=== PATIENT | female | born 1980 | race Caucasian/White ===

== ENCOUNTER 2016-11-29 00:33 | Observation (INO) | payer BC ==
[2016-11-29] MEDS ORDERED: Morphine INJ* 4 MG/ML 1 ML SYRINGE IV ONE ×2 (00:56→04:35)
[2016-11-29] MEDS ORDERED: NS 0.9% 1000 ML* 1,000 ML IV ONE (00:56)
[2016-11-29] MEDS ORDERED: Ondansetron INJ* 2 MG/ML VIAL IV ONE ×2 (00:56→04:35)
[2016-11-29 01:04] LABS: Hematocrit 47 % (35-47); Hemoglobin 15.7 g/dl (12.0-16.0); Mean Corpuscular HGB Conc 33 g/dl (31-36); Mean Corpuscular Hemoglobin 28 pg (27-31); Mean Corpuscular Volume 85 fL (80-97); Mean Platelet Volume 9 um3 (7.4-10.4); Red Blood Count 5.52 10^6/ul (4.0-5.4); Red Cell Distribution Width 13 % (10.5-15); White Blood Count 20.3 10^3/ul (3.5-10.8)
[2016-11-29 01:05] LABS: Add Diff/Slide Review? Slide Review Added; Comments Flag Yes
--- NOTE | 2016-11-29 01:09 | ED ---
I, Yony,Tina, scribed for Alex Mesa MD on 11/29/16 at 0056 . Abdominal Pain/Female - HPI Summary HPI Summary: This 36 y/o female presents to ED for acute abd pain since 1900 PM. Pain is diffuse and has been progressive worsening since the onset. Positive n/v x1 INDUSTRIAL RELATIONS REPRESENTATIVE. Pt states that she has been having n/v/d since a month ago, which is currently being f/u with EGD and colonoscopy without definite dx. PMHx includes CAD and IA s/p stent placement at age 34, and cholecystectomy. Pt is visiting [place] from out of town. - History of Current Complaint Chief Complaint: EDAbdPain Stated Complaint: ABD PAIN Time Seen by Provider: 11/29/16 00:34 Hx Obtained From: Patient, Medical Records Onset/Duration: Still Present Timing: Constant Pain Intensity: 10 Pain Scale Used: 0-10 Numeric Location: Diffuse Radiates: No Aggravating Factor(s): Nothing Alleviating Factor(s): Nothing Associated Signs and Symptoms: Positive: Nausea, Vomiting Allergies/Adverse Reactions: Allergies Allergy/AdvReac Type Severity Reaction Status Date / Time No Known Allergies Allergy Verified 11/29/16 00:37 Home Medications: Home Medications Aspirin [Aspirin 81 MG TAB] 81 mg PO DAILY 11/29/16 [History Confirmed 11/29/16] Atorvastatin* [Lipitor*] 10 mg PO DAILY 11/29/16 [History Confirmed 11/29/16] Levothyroxine TAB* [Synthroid TAB*] 50 mcg PO DAILY 11/29/16 [History Confirmed 11/29/16] Liraglutide [Victoza] 1.2 mg SC DAILY 11/29/16 [History Confirmed 11/29/16] Lisinopril [Prinivil TAB 20 mg] 20 mg PO DAILY 11/29/16 [History Confirmed 11/29] Metoprolol Succinate [Toprol Xl] 25 mg PO DAILY 11/29/16 [History Confirmed ] metFORMIN* [Glucophage 500 MG TAB *] 500 mg PO DAILY 11/29/16 [History Confirmed 11/29/16] PMH/Surg Hx/FS Hx/Imm Hx Cardiovascular History: Reports: Hx Coronary Artery Disease, Hx Myocardial Infarction - Surgical History Surgery Procedure, Year, and Place: cholecystectomy Infectious Disease History: No Infectious Disease History: Denies: Traveled Outside the [place] in Last 30 Days - Family History Known Family History: Positive: Cardiac Disease - Positive to father, Hypertension - Positive to father, Diabetes - Positive to mother - Social History Alcohol Use: None Hx Substance Use: No Substance Use Type: Reports: None Hx Tobacco Use: No Smoking Status (MU): Never Smoked Tobacco Review of Systems Negative: Fever Positive: Abdominal Pain, Vomiting, Nausea Negative: dysuria All Other Systems Reviewed And Are Negative: Yes Physical Exam Triage Information Reviewed: Yes Vital Signs On Initial Exam: Initial Vitals Temp Pulse Resp BP Pulse Ox 99.2 F 137 28 131/103 100 11/29/16 00:36 11/29/16 00:36 11/29/16 00:36 11/29/16 00:36 11/29/16 00:36 Vital Signs Reviewed: Yes Appearance: Positive: Pain Distress - mild discvomfort, Obese Skin: Positive: Warm Head/Face: Positive: Normal Head/Face Inspection Eyes: Positive: AALIYAH ENT: Positive: Hearing grossly normal Neck: Positive: Supple Respiratory/Lung Sounds: Positive: Clear to Auscultation, Breath Sounds Present Cardiovascular: Positive: RRR Abdomen Description: Positive: No Organomegaly, Soft, Guarding, Other: - mild diffuse abd tenderness. Negative: Distended Bowel Sounds: Positive: Present Musculoskeletal: Positive: Strength/ROM Intact Neurological: Positive: Alert, Oriented to Person Place, Time Psychiatric: Positive: Affect/Mood Appropriate Diagnostics - Vital Signs Vital Signs Temp Pulse Resp BP Pulse Ox 11/29/16 00:36 99.2 F 137 28 131/103 100 - Laboratory Lab Results: Lab Results 11/29/16 Range/Units 00:55 WBC 20.3 H (3.5-10.8) 10^3/ul RBC 5.52 H (4.0-5.4) 10^6/ul Hgb 15.7 (12.0-16.0) g/dl Hct 47 (35-47) % MCV 85 (80-97) fL MCH 28 (27-31) pg MCHC 33 (31-36) g/dl RDW 13 (10.5-15) % Plt Count 464 H (150-450) 10^3/ul MPV 9 (7.4-10.4) um3 Neut % (Auto) 76.4 (38-83) % Lymph % (Auto) 12.9 L (25-47) % Hopkins % (Auto) 8.4 (1-9) % Eos % (Auto) 1.8 (0-6) % Baso % (Auto) 0.5 (0-2) % Absolute Neuts (auto) 15.5 H (1.5-7.7) 10^3/ul Absolute Lymphs (auto) 2.6 (1.0-4.8) 10^3/ul Absolute Monos (auto) 1.7 H (0-0.8) 10^3/ul Absolute Eos (auto) 0.4 (0-0.6) 10^3/ul Absolute Basos (auto) 0.1 (0-0.2) 10^3/ul Absolute Nucleated RBC 0 10^3/ul Nucleated RBC % 0 Result Diagrams: 11/29/16 00:55 11/29/16 00:55 Lab Statement: Any lab studies that have been ordered have been reviewed, and results considered in the medical decision making process. - CT Ab/P CT Interpretation: Positive (See Comments) - Moderately to severely inflameed left abd small bowel loops with small amount of ascites but no abscess or freea air, could be secondary to infection or Crohn's dz. Fatty Liver. CT Interpretation Completed By: Radiologist - EKG 0053 Cardiac Rate: Tachycardia - 131 bpm EKG Rhythm: Sinus Tachycardia EKG Interpretation: RBBB Abdominal Pain Fem Course/Dx - Diagnoses Provider Diagnoses: Abdominal pain - Provider Notifications Discussed Care Of Patient With: Dr. Kovacs (Hospitalist) paged at 0438 AM. Call returned at 0451 AM Instructed by Provider To: Admit As Inpatient Discharge - Discharge Plan Condition: Fair Disposition: ADMITTED TO [facility] The documentation as recorded by the Yony novak Soohyun accurately reflects the service I personally performed and the decisions made by me, Alex Mesa MD.
[2016-11-29 01:17] LABS: ALT 9 U/L (7-52); AST 9 U/L (13-39); Albumin 3.5 g/dL (3.2-5.2); Alkaline Phosphatase 72 U/L (34-104); Anion Gap 13 mmol/L (2-11); BUN/Creatinine Ratio 10.5 (8-20); Blood Urea Nitrogen 9 mg/dL (6-24); CO2 Carbon Dioxide 18 mmol/L (22-32); Calcium 8.5 mg/dL (8.6-10.3); Chloride 100 mmol/L (101-111); EGFR Non-African American 74.7 (>60); Globulin 3.3 g/dL (2-4); Glucose 209 mg/dL (70-100); Lipase 26 U/L (11.0-82.0); Magnesium 1.7 mg/dL (1.9-2.7); Potassium 3.9 mmol/L (3.5-5.0); Sodium 131 mmol/L (133-145); Total Protein 6.8 g/dL (6.4-8.9)
[2016-11-29] MEDS ORDERED: Iodixanol* (CONTRAST) 320 MG/ML 100 ML SDV IV ONE (04:13)
[2016-11-29] MEDS ORDERED: Ondansetron INJ* 2 MG/ML VIAL ONE (04:33)
[2016-11-29] MEDS ORDERED: Morphine INJ* 4 MG/ML 1 ML SYRINGE ONE (04:33)
[2016-11-29 04:58] LABS: Urine Bacteria Absent (Absent); Urine Bilirubin Negative (Negative); Urine Glucose Negative (Negative); Urine Nitrite Negative (Negative)
[2016-11-29] MEDS ORDERED: Magnesium Sulfate 2 GM IV* 2 GM/50 ML BAG IVPB ONE (05:05)
[2016-11-29] MEDS ORDERED: Morphine INJ* 2 MG/ML 1 ML SYRINGE IV PRN (05:05)
[2016-11-29] MEDS ORDERED: Acetaminophen TAB* 325 MG PO PRN (05:05)
[2016-11-29] MEDS ORDERED: NS 0.9% 1000 ML* 1,000 ML IV SCH (05:15)
[2016-11-29] MEDS ORDERED: Dextrose 50% Syringe 50 ML* 25 GM/50 ML SYRINGE IV PUSH PRN (05:52)
[2016-11-29] MEDS: Levothyroxine TAB* 50 MCG TAB PO SCH (06:22)
[2016-11-29] MEDS ORDERED: metroNIDAZOLE IV 500 MG/100ML* 500 MG/100 ML BAG IVPB SCH (06:30)
--- NOTE | 2016-11-29 07:39 | RAD ---
CLINICAL HISTORY: Diffuse abdominal pain COMPARISON: None TECHNIQUE: Multiple contiguous axial CT scans were obtained of the abdomen and pelvis after the administration of intravenous contrast. Coronal and sagittal multiplanar reformations are submitted for review. Oral contrast was administered. Delayed images were obtained through the abdomen and pelvis. FINDINGS: LUNG BASES: The lung bases are clear. LIVER: The liver is diffusely low in attenuation compared to the spleen. There are no focal hepatic parenchymal masses. The liver is enlarged measuring 21 cm in long axis. There is trace perihepatic ascites. BILE DUCTS: There is no intrahepatic or extrahepatic biliary dilatation. GALLBLADDER: The gallbladder is not visualized. Surgical clips are noted in the gallbladder fossa. PANCREAS: The pancreas is normal, without mass or ductal dilatation. SPLEEN: Normal in size and appearance. UPPER GI TRACT: Evaluation of the gastrointestinal tract is limited by incomplete gastric distention. The upper GI tract is unremarkable. SMALL BOWEL AND MESENTERY: There is mucosal thickening of the proximal jejunum with associated stranding of the mesenteric fat. There is no obstruction. COLON: There are multiple diverticula of the sigmoid colon. There is no pericolonic inflammatory change. ADRENALS: Normal bilaterally. KIDNEYS: The kidneys are normal in shape, size, contour, and axis. There is no hydronephrosis or nephrolithiasis. BLADDER: The bladder is smooth in contour. PELVIC ORGANS: The uterus and adnexa are grossly normal for technique. AORTA: The aorta is normal. The splanchnic vessels are patent. IVC: Unremarkable LYMPH NODES: There is no lymphadenopathy by size criteria. ABDOMINAL WALL: There is a small fat-containing umbilical hernia BONES AND SOFT TISSUES: There are mild diffuse degenerative changes. OTHER: There is a small amount of ascites IMPRESSION: 1. HEPATOMEGALY WITH FATTY INFILTRATION OF THE LIVER. 2. THERE IS SEGMENTAL MUCOSAL THICKENING OF THE PROXIMAL JEJUNUM CONSISTENT WITH ENTERITIS, INCLUDING INFLAMMATORY OR INFECTIOUS ENTERITIS. 3. SMALL AMOUNT OF ASCITES. 4. DIVERTICULOSIS
[2016-11-29] MEDS: Aspirin EC Low Dose* 81 MG TAB.EC PO SCH (07:50)
[2016-11-29] MEDS: Metoprolol Succinate XL TAB* 25 MG PO SCH (07:50)
[2016-11-29] MEDS: Atorvastatin* 10 MG TAB PO SCH (07:50)
[2016-11-29] MEDS: Levofloxacin 500 MG IVPREMIX(* 500 MG/100 ML BAG IVPB ONE (07:50)
--- NOTE | 2016-11-29 08:28 | HP ---
HISTORY AND PHYSICAL: DATE OF ADMISSION: 11/29/16 PRIMARY CARE PROVIDER: Jeana Noguera MD, [place], [place] CHIEF COMPLAINT: Abdominal pain. HISTORY OF PRESENT ILLNESS: Ms. West is a 36-year-old female who states that, for the last one year, she has had issues were suddenly she will begin to vomit out of the blue. This will not be preceded by anything other than perhaps lying on her left side. The patient states that this has been an on-going issue and not at play today; however, she did have vomiting on the evening prior to admission. The patient states that she had been worked up for this intermittent vomiting with EGD and colonoscopy. She states that these were done approximately one month ago. The EGD showed perhaps some gastritis, and the colonoscopy with one polyp was found and removed. The patient states that she traveled to the [facility] to be in town for a on this coming . The patient states that at approximately 7 p.m. 11/28/16 she had the sudden onset of diffuse abdominal pain. At approximately 10:30 p.m., she had nausea, vomiting, or worsened pain. She notes that the pain is much worse with any movement; if she lays completely still, then the pain is better. The patient described the pain as being diffuse; nothing really seemed to make it better other than lying still. She states that when she got up to go to the bathroom to urinate she noticed while sitting on the toilet she had significant rectal pressure though did not have an urge to have a bowel movement. The patient states that her last bowel movement was the morning of 11/28/16. She states that she, in fact, had two bowel movements that morning - one at approximately 8 a.m., one at approximately 10 p.m. She denies any blood in these. She states that the bowel movements were slightly loose, but she states that's not abnormal for her since she had a colonoscopy. She states that she has not had any fevers, though this past evening she did feel chilled. She does feel thirsty. PAST MEDICAL HISTORY: 1. Type 2 diabetes. 2. Coronary artery disease, status post NM in 2013, status post stenting to the LAD. PAST SURGICAL HISTORY: 1. Cholecystectomy. 2. Tonsillectomy. MEDICATIONS: 1. Metformin 500 mg p.o. daily. 2. Victoza 1.2 mg subcutaneous daily. 3. Metoprolol XL 25 mg p.o. daily. 4. Lisinopril 20 mg p.o. daily. 5. Lipitor 10 mg p.o. q.h.s. 6. control one tab p.o. daily. 7. Aspirin 81 mg p.o. daily. 8. Levothyroxine 50 mcg p.o. daily. ALLERGIES: No known drug allergies. FAMILY HISTORY: Mom is living. She is 59 and healthy. Dad is . She states that she is unaware of what he passed from as he was in [place]; however, he did have a history of coronary artery disease, diabetes, and a brain tumor. SOCIAL HISTORY: The patient smoked in the past, though states that she does not at this time. She is really unable to quantify how much she was smoking. She denies any alcohol use. 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 She is not . She has one 4-year-old daughter who is healthy. At this point, she would chose her mom to be her healthcare proxy. REVIEW OF SYSTEMS: No fevers. She does admit to chills as above. She states that she has had no change in her appetite, and, in fact, she has been feeling more hungry recently. She states that she had some mild chest discomfort earlier on the night prior to admission. However, she states that she had similar chest pain recently, and approximately two weeks ago got worked up for this and everything checked out. She denies any lower extremity edema at this time. No cough, no shortness of breath. She had some abdominal pain, nausea, and vomiting as above. No hematuria, no dysuria. She does state that when she first shoed up to the emergency room she believes that she was hyperventilating due to severe pain and she felt as if her fingers were numb and tingly. She states that the left side of her face and her leg also found tingly. The face and legs have resolved though her fingers still feel somewhat abnormal; this is bilateral. She denies any sudden change in vision, no dysphagia, no joint pains , or muscle pains out of the ordinary. She does have a chronic rash on her arms , though she states that she has sensitive skin and that is what she attributes this to. She admits increased stress recently as her grandmother unexpectedly. PHYSICAL EXAMINATION GENERAL: The patient is a well-developed, morbidly-obese, young female lying on a stretcher in no acute distress. VITAL SIGNS: Blood pressure 117/68, pulse 93, respirations 19, temp 99.2, O2 sat 96% on room air. HEENT: Pupils are equal, round and reactive to light. Extraocular muscles are intact. Oropharynx is clear. Oral mucosa is moist. NECK: There is no submandibular, cervical, or supraclavicular adenopathy. Thyroid is not enlarged. No thyroid nodule is noted. PULMONARY: Breath sounds are diminished in all lung flores, though clear to auscultation. CARDIAC: Normal S1, S2. Regular rate and rhythm. I do not appreciate any murmurs. There is no lower extremity edema. ABDOMEN: Bowel sounds are present, but hypoactive. Abdomen is obese, soft, nondistended. She is diffusely tender to palpation. MUSCULOSKELETAL: There is no cyanosis or clubbing of the digits. There is full active range of motion of all 4 extremities. SKIN: Warm and dry. She does have a slight rash noted on her forearm. NEUROLOGIC: Cranial nerves II through XII are grossly intact. Sensation is intact to light touch throughout. Strength is 5/5 and symmetric in both upper and lower extremities bilaterally. PSYCH: The patient is alert. She is oriented x3. Affect appears appropriate. LABORATORY DATA: WBC 20.3, hemoglobin 15.7, hematocrit 47, platelets 464. INR 0.86. Sodium 131, potassium 3.9, chloride 100, CO2 18, BUN 9, creatinine 0.86, glucose 209, lactic acid 4.0, calcium 8.5, magnesium 1.7, bilirubin 0.7, AST 9, ALT 9, alk phos 72, troponin zero, CRP 17.3, albumin 3.5, lipase 26. Urinalysis revealed specific gravity of greater than 1.060, trace ketones, and otherwise negative. CT abdomen and pelvis reveals fatty liver and status post cholecystectomy without biliary dilation. Normal pancreas, spleen, and adrenal glands, and kidneys are noted. There is moderately to severely inflamed left abdominal small bowel loops which can be due to infection or Crohn's disease. Bowel ischemia is considered unlikely in a patient this young in age. No bowel obstruction, abscess or free air is noted. ASSESSMENT AND PLAN: Ms. West is a 36-year-old female with a history of coronary artery disease and type 2 diabetes who is visiting from out of town for a who presents to the emergency room with sudden onset of severe diffuse abdominal pain with associated nausea and vomiting. 1. Abdominal pain. The etiology of this is likely related to the inflamed small bowel loop seen on CT scan. The patient has had numerous evaluations for intermittent vomiting and nausea, and I suspect she has had imaging in the past. It would likely be prudent to get a hold of some of this imaging. For now , we will go ahead and start the patient on levofloxacin and Flagyl, especially given her markedly elevated white blood cell count. The patient denies any recent sick contacts. At this point, we will perform serial abdominal exams and monitor her lab work and obtain GI consultation. Follow-up labs will be obtained tomorrow to evaluate for improvement in her white blood cell count. 2. Lactic acidosis. The patient has a fairly significant lactic acidosis with lactic acid of 4.0. I suspect this is due to volume depletion. The patient does state that she feels thirsty. She will be hydrated with normal saline at 100 mL/hour. The patient already received some IV fluid in the emergency room. 3. Type 2 diabetes. The patient's metformin and Victoza will be held for now. We will obtain fingersticks a.c., h.s. and cover with a Lispro sliding scale. 4. Coronary artery disease. The patient did complain of chest pain while in the emergency room. However, this is the exact pain that she had approximately two weeks ago that she got worked up with an echo and stress test that were reportedly normal. Her troponin here in the emergency room is negative. I do not think any further workup is needed of this at this time. 5. DVT prophylaxis. According to the Adult Thrombosis Prophylaxis Risk Factor Assessment Guide, the patient has a total risk factor score of 1, making her a low risk. Ambulation will be utilized as DVT prophylaxis. 6. Code status is full; and, again, currently, the patient indicates that her mom would be her healthcare proxy if she is unable to make her own medical decision. TIME SPENT: Sixty-five minutes were spent admitting this patient. CC: Dr. Jeana Noguera MD* [id number]/[facility] #: [id number] [facility] HOSPITALJoi
[2016-11-29] MEDS: Insulin LISPRO* 1 UNITS UNIT SUBCUT SCH ×4 (08:39→20:50)
--- NOTE | 2016-11-29 08:41 | PN ---
Subjective Date of Service: 11/29/16 Interval History: Patient seen and examined at bedside. She endorses diffuse low abdominal pain that is roughly the same as when she came in. Denies CP, SOB, fever/chills. She reports that this feels similar to previous episodes of n/v and abd pain. Patient recently had EGD and colonoscopy - records requested. Family History: Unchanged from Admission Social History: Unchanged from Admission Past Medical History: Unchanged from Admission Objective Active Medications: Acetaminophen (Tylenol Tab*) 650 mg PO Q4H PRN PRN Reason: PAIN Aspirin (Aspirin Ec Low Dose*) 81 mg PO DAILY [facility] Last Admin: 11/29/16 07:50 Dose: 81 mg Atorvastatin Calcium (Lipitor*) 10 mg PO DAILY [facility] Last Admin: 11/29/16 07:50 Dose: 10 mg Dextrose (D50w Syringe 50 Ml*) 12.5 gm IV PUSH .FOR FS < 60 - SS PRN PRN Reason: FS < 60 Sodium Chloride (Ns 0.9% 1000 Ml*) 1,000 mls @ 100 mls/hr IV PER RATE [facility] Last Admin: 11/29/16 06:35 Dose: 100 mls/hr Metronidazole/Sodium Chloride (Flagyl 500 Mg Ivpb*) 500 mg in 100 mls @ 100 mls /hr IVPB Q12H [facility] Insulin Human Lispro (Humalog*) 0 units SUBCUT ACHS VICKIE PRN Reason: Protocol Levothyroxine Sodium (Synthroid Tab*) 50 mcg PO DAILY@0600 [facility] Last Admin: 11/29/16 06:22 Dose: 50 mcg Lisinopril (Prinivil Tab*) 20 mg PO DAILY [facility] Last Admin: 11/29/16 07:50 Dose: 20 mg Metoprolol Succinate (Toprol Xl Tab*) 25 mg PO DAILY [facility] Last Admin: 11/29/16 07:50 Dose: 25 mg Morphine Sulfate (Morphine Inj (Syringe)*) 2 mg IV Q4H PRN PRN Reason: PAIN - MILD Last Admin: 11/29/16 06:33 Dose: 2 mg Ondansetron HCl (Zofran Inj*) 4 mg IV Q6H PRN PRN Reason: NAUSEA Vital Signs 11/29/16 11/29/16 11/29/16 06:00 06:03 06:22 Temperature 98.6 F 98.6 F Pulse Rate 92 88 Respiratory 10 18 Rate Blood Pressure 137/86 117/70 (mmHg) O2 Sat by Pulse 95 97 Oximetry 11/29/16 11/29/16 11/29/16 06:33 07:21 07:24 Temperature 98.2 F 97.5 F Pulse Rate 90 91 Respiratory 16 16 16 Rate Blood Pressure 110/54 (mmHg) O2 Sat by Pulse 97 98 Oximetry 11/29/16 07:33 Temperature Pulse Rate Respiratory 14 Rate Blood Pressure (mmHg) O2 Sat by Pulse Oximetry Oxygen Devices in Use Now: None Appearance: Female patient, lying in bed, NAD Eyes: PERRLA Ears/Nose/Mouth/Throat: Mucous Membranes Moist Neck: NL Appearance and Movements; NL JVP Respiratory: Symmetrical Chest Expansion and Respiratory Effort, Clear to Auscultation - diminished Cardiovascular: NL Sounds; No Murmurs; No JVD, RRR Abdominal: - - abd soft, diffusely tender to palpation, BS hypoactive Neurological: Alert and Oriented x 3 Lines/Tubes/Other Access: Clean, Dry and Intact Peripheral IV Result Diagrams: 11/29/16 00:55 11/29/16 00:55 Additional Lab and Data: Lab Results 11/29/16 Range/Units 00:55 WBC 20.3 H (3.5-10.8) 10^3/ul RBC 5.52 H (4.0-5.4) 10^6/ul Hgb 15.7 (12.0-16.0) g/dl Hct 47 (35-47) % MCV 85 (80-97) fL MCH 28 (27-31) pg MCHC 33 (31-36) g/dl RDW 13 (10.5-15) % Plt Count 464 H (150-450) 10^3/ul MPV 9 (7.4-10.4) um3 Neut % (Auto) 76.4 (38-83) % Lymph % (Auto) 12.9 L (25-47) % Garrett % (Auto) 8.4 (1-9) % Eos % (Auto) 1.8 (0-6) % Baso % (Auto) 0.5 (0-2) % Absolute Neuts (auto) 15.5 H (1.5-7.7) 10^3/ul Absolute Lymphs (auto) 2.6 (1.0-4.8) 10^3/ul Absolute Monos (auto) 1.7 H (0-0.8) 10^3/ul Absolute Eos (auto) 0.4 (0-0.6) 10^3/ul Absolute Basos (auto) 0.1 (0-0.2) 10^3/ul Absolute Nucleated RBC 0 10^3/ul Nucleated RBC % 0 Assess/Plan/Problems-Billing Assessment: Ms. West is a 36 yo female with a PMH of CAD (PR with stent placement 2013) and type 2 DM who presented to the ED on 11/29 with concern for abdominal pain. - Patient Problems (1) Abdominal pain Code(s): R10.9 - UNSPECIFIED ABDOMINAL PAIN Comment: Diffuse tenderness with palpation Inflammed small bowel loop noted on CT scan with concern for enteritis. Patient reports multiple evaluations for N/V. [place] - will attempt to obtain records. Continue levofloxacin and metronidazole, given elevated WBC count. Appreciate GI consult. (2) Lactic acidosis Code(s): E87.2 - ACIDOSIS Comment: Resolved. Likely secondary to hypovolemia. (3) Diabetes mellitus Code(s): E11.9 - TYPE 2 DIABETES MELLITUS WITHOUT COMPLICATIONS Comment: Continue FSBG with Lispro SSI. Home metformin and Victoza on hold. (4) CAD (coronary artery disease) Code(s): I25.10 - ATHSCL HEART DISEASE OF [place] CORONARY ARTERY W/O ANG PCTRS Comment: s/p PR in 2013 with stent to LAD Continue ASA and metoprolol. (5) Hypothyroidism Code(s): E03.9 - HYPOTHYROIDISM, UNSPECIFIED Comment: Continue levothyroxine. (6) DVT prophylaxis Code(s): [id number] - Comment: Encourage early ambulation. SCDs Status and Disposition: OBV admit. D/c to home when medically stable.
[2016-11-29] MEDS ORDERED: Lisinopril TAB* 10 MG PO SCH (09:00)
[2016-11-29] MEDS: metroNIDAZOLE IV 500 MG/100ML* 500 MG/100 ML BAG IVPB SCH ×2 (09:12→20:53)
[2016-11-29] MEDS ORDERED: Morphine INJ* 4 MG/ML 1 ML SYRINGE IV PRN (10:54)
[2016-11-29] MEDS: Morphine INJ* 4 MG/ML 1 ML SYRINGE IV PRN ×2 (16:57→20:53)
[2016-11-29] MEDS: NS 0.9% 1000 ML* 1,000 ML IV SCH (18:06)
--- NOTE | 2016-11-30 00:01 | CONS ---
GASTROENTEROLOGY CONSULT: DATE: 11/29/16 CONSULTING PHYSICIAN: Sobeida Kovacs DO HISTORY: This 36-year-old woman who drove from her home in [place] to [facility] on 11/25/16, was fine and stated she had not been doing anything unusual or eating anything unusual when she suddenly developed a diffuse mid to lower abdominal pain on 11/28/16 at 7 p.m. She vomited once about 3 hours later but the pain became worse. She had some chills, but no documented fever. She came to the ER and was afebrile with WBC of 20,[address] scan showed diffuse edematous dilation of several upper jejunal loops. It seemed to start about a foot or [id number] below the ligament of Treitz. She has been undergoing gastroenterology workup for what per description today seem to be somewhat different symptoms. She would have nausea and vomiting without abdominal pain seemingly coming on when she lay on her left side. That was a recurring pattern. She had always thought she would be nauseated by lying on her left side, but the vomiting started about a year ago. Upper endoscopy by Dr Angel Lane in [place] was said to be normal. She had had a trial of omeprazole 40 mg: at one point on the referral records it says that her symptoms were better but today she says they were not. She took it for about 3 months. The record also says she was fearful of PPI side effects. She has not been on it for a couple of months. In [place], she had a CT scan October 2015 while working up the nausea and vomiting episodes. She was asymptomatic at the time of the scan, which was normal. Four months later, she was having some different left-sided abdominal pain and a CT scan showed inflammatory change in the mid descending colon and she was treated for diverticulitis. Following that, she had a colonoscopy that showed a mid right colon precancerous polyp. The report refers to suggesting her relatives began colon screening in their 20s. PAST MEDICAL HISTORY: 1. Morbid obesity. 2. Status post cholecystectomy. 3. Status post myocardial infarction in 2013, at which time diabetes was diagnosed and most of her medicines started. 4. Hypothyroidism - started replacement August 2016. MEDICATIONS: Of GI relevance: Metformin 500 mg daily, Victoza 1.2 mg subcu QD, Lisinopril 20 mg BCP Aspirin 81 mg SOCIAL HISTORY: She was born in [place] but moved with her mother to [place]. She was traveling up here for her grandmother's . She works as a vice president of customer service. She is single with a 4-year-old child. REVIEW OF SYSTEMS: She denies any history of hives, rash, or swelling of her limbs. She has not had previous episodes similar to this one but that assessment coming after analyzing the history. No history of hepatitis. No family history of unexplained abdominal pain. She has never had pancreatitis. PHYSICAL EXAM: She is a very significantly morbidly obese young woman, in no overt distress at this time. Weight is 283. HEENT exam shows no icterus. She has no adenopathy. Her lungs are clear and heart sounds are regular. Breast and pelvic exams deferred. The abdomen is obese with a couple of pendulous panniculi. Bowel sounds are present and non-mechanical. Rectal deferred. Extremities show no edema or asymmetry. LABORATORY DATA: Admission CBC, white count 20.3, hemoglobin 15.7, hematocrit 47, MCV 85, platelets 464. LFTs normal. CRP 17.3, albumin 3.5. Creatinine 0.86, BUN 9, glucose 209. RADIOLOGY REVIEW: Reviewing the images with the radiologist show that there is an area of fairly symmetric continuous swelling of the jejunum over several loops beginning a foot or two below the ligament of Treitz. There is no gas distention or intramural gas. Contrast in the vasculature did show normal arterial and venous circulation. The abdominal aorta itself appears fine with no calcifications and the takeoff of the major vessels are fine. IMPRESSION: This 36-year-old woman who is morbidly obese and likely does have nonerosive reflux, ( the probable cause of some of her long-term nausea and vomiting and positional nausea), also had an episode of diverticulitis in the past documented by CT. The current episode per history seems different and not the same as the previous patterns. The very focal edema in the bowel wall would raise a question of a vasculitis or circulatory problem though she has no evidence of such a process systemically and it is difficult to make that diagnosis based on the single event. Other possibilities are her hereditary angioedema and possibly just an atypical manifestation of an infection. Lisinopril can cause edema reactions though she has been on it for 3 years. Changing to an ARB might be a consideration and more conservative approach is stopping it altogether as a trial. Will order C4 and C1 esterase inhibitor. [id number]/[facility] #: [id number] MTDD
[2016-11-30] MEDS: NS 0.9% 1000 ML* 1,000 ML IV SCH ×3 (04:01→23:30)
[2016-11-30] MEDS: Morphine INJ* 4 MG/ML 1 ML SYRINGE IV PRN ×2 (04:01→10:12)
[2016-11-30] MEDS: Levothyroxine TAB* 50 MCG TAB PO SCH (05:26)
[2016-11-30 07:01] LABS: Hematocrit 34 % (35-47); Hemoglobin 11.3 g/dl (12.0-16.0); Mean Corpuscular HGB Conc 33 g/dl (31-36); Mean Corpuscular Hemoglobin 29 pg (27-31); Mean Corpuscular Volume 86 fL (80-97); Mean Platelet Volume 8 um3 (7.4-10.4); Red Blood Count 3.91 10^6/ul (4.0-5.4); Red Cell Distribution Width 13 % (10.5-15); White Blood Count 9.3 10^3/ul (3.5-10.8)
[2016-11-30 07:18] LABS: BUN/Creatinine Ratio 6.7 (8-20); C Reactive Protein 36.56 mg/L (< 5.00); Calcium 7.1 mg/dL (8.6-10.3); EGFR African American 145.5 (>60); EGFR Non-African American 113.1 (>60)
[2016-11-30] MEDS: metroNIDAZOLE IV 500 MG/100ML* 500 MG/100 ML BAG IVPB SCH (10:04)
[2016-11-30] MEDS: Atorvastatin* 10 MG TAB PO SCH (10:08)
[2016-11-30] MEDS: Insulin LISPRO* 1 UNITS UNIT SUBCUT SCH ×4 (10:08→21:33)
[2016-11-30] MEDS: Aspirin EC Low Dose* 81 MG TAB.EC PO SCH (10:08)
[2016-11-30] MEDS: Losartan TAB* 25 MG PO SCH (10:08)
[2016-11-30] MEDS: Ondansetron INJ* 2 MG/ML VIAL IV PRN (10:11)
[2016-11-30] MEDS: Metoprolol Succinate XL TAB* 25 MG PO SCH (10:38)
--- NOTE | 2016-11-30 11:36 | PN ---
Subjective Date of Service: 11/30/16 Interval History: Patient seen and examined at bedside. She reports improvement in her pain and feels as if she can move around better. Reports pain with BM, but denies bloody or black, tarry stool. Stool was formed and soft. Denies fever/chills, CP, SOB, n/v. Tolerating clear liquids. Family History: Unchanged from Admission Social History: Unchanged from Admission Past Medical History: Unchanged from Admission Objective Active Medications: Acetaminophen (Tylenol Tab*) 650 mg PO Q4H PRN PRN Reason: PAIN Aspirin (Aspirin Ec Low Dose*) 81 mg PO DAILY [facility] Last Admin: 11/30/16 10:08 Dose: 81 mg Atorvastatin Calcium (Lipitor*) 10 mg PO DAILY [facility] Last Admin: 11/30/16 10:08 Dose: 10 mg Dextrose (D50w Syringe 50 Ml*) 12.5 gm IV PUSH .FOR FS < 60 - SS PRN PRN Reason: FS < 60 Metronidazole/Sodium Chloride (Flagyl 500 Mg Ivpb*) 500 mg in 100 mls @ 100 mls /hr IVPB 0900,2100 [facility] Last Admin: 11/30/16 10:04 Dose: 100 mls/hr Sodium Chloride (Ns 0.9% 1000 Ml*) 1,000 mls @ 125 mls/hr IV PER RATE [facility] Last Admin: 11/30/16 04:01 Dose: 125 mls/hr Insulin Human Lispro (Humalog*) 0 units SUBCUT ACHS [facility] PRN Reason: Protocol Last Admin: 11/30/16 10:08 Dose: Not Given Levothyroxine Sodium (Synthroid Tab*) 50 mcg PO DAILY@0600 [facility] Last Admin: 11/30/16 05:26 Dose: 50 mcg Losartan Potassium (Cozaar Tab*) 25 mg PO DAILY [facility] Last Admin: 11/30/16 10:08 Dose: 25 mg Metoprolol Succinate (Toprol Xl Tab*) 25 mg PO DAILY [facility] Last Admin: 11/30/16 10:38 Dose: Not Given Morphine Sulfate (Morphine Inj (Syringe)*) 4 mg IV Q3H PRN PRN Reason: PAIN - MILD Last Admin: 11/30/16 10:12 Dose: 4 mg Ondansetron HCl (Zofran Inj*) 4 mg IV Q6H PRN PRN Reason: NAUSEA Last Admin: 11/30/16 10:11 Dose: 4 mg Vital Signs 11/29/16 11/29/16 11/29/16 11:35 12:35 15:17 Temperature 98.3 F Pulse Rate 86 Respiratory 16 14 18 Rate Blood Pressure 87/49 (mmHg) O2 Sat by Pulse 96 Oximetry 11/29/16 11/29/16 11/29/16 15:21 16:57 17:57 Temperature Pulse Rate Respiratory 18 16 Rate Blood Pressure 90/62 (mmHg) O2 Sat by Pulse Oximetry 11/29/16 11/29/16 11/29/16 19:43 20:00 20:53 Temperature 97.5 F Pulse Rate 80 Respiratory 16 16 16 Rate Blood Pressure 122/65 (mmHg) O2 Sat by Pulse 98 Oximetry 11/29/16 11/29/16 11/30/16 21:53 23:32 03:35 Temperature 97.4 F 98.3 F Pulse Rate 79 81 Respiratory 15 16 Rate Blood Pressure 100/59 108/63 (mmHg) O2 Sat by Pulse 94 94 Oximetry 11/30/16 11/30/16 11/30/16 04:01 05:01 08:00 Temperature Pulse Rate Respiratory 18 15 18 Rate Blood Pressure (mmHg) O2 Sat by Pulse Oximetry 11/30/16 11/30/16 10:12 10:25 Temperature 98.0 F Pulse Rate 88 Respiratory 18 20 Rate Blood Pressure 102/56 (mmHg) O2 Sat by Pulse 96 Oximetry Oxygen Devices in Use Now: None Appearance: Female patient, lying in bed, NAD Eyes: PERRLA Ears/Nose/Mouth/Throat: Mucous Membranes Moist Neck: NL Appearance and Movements; NL JVP Respiratory: Symmetrical Chest Expansion and Respiratory Effort, Clear to Auscultation Cardiovascular: NL Sounds; No Murmurs; No JVD, RRR Abdominal: - - soft, obese, diffusely tender with palpation Neurological: Alert and Oriented x 3, NL Muscle Strength and Tone Lines/Tubes/Other Access: Clean, Dry and Intact Peripheral IV Nutrition: Taking PO's - clears Result Diagrams: 11/30/16 06:54 11/30/16 06:54 Additional Lab and Data: Lab Results 11/29/16 Range/Units 00:55 WBC 20.3 H (3.5-10.8) 10^3/ul RBC 5.52 H (4.0-5.4) 10^6/ul Hgb 15.7 (12.0-16.0) g/dl Hct 47 (35-47) % MCV 85 (80-97) fL MCH 28 (27-31) pg MCHC 33 (31-36) g/dl RDW 13 (10.5-15) % Plt Count 464 H (150-450) 10^3/ul MPV 9 (7.4-10.4) um3 Neut % (Auto) 76.4 (38-83) % Lymph % (Auto) 12.9 L (25-47) % [place] % (Auto) 8.4 (1-9) % Eos % (Auto) 1.8 (0-6) % Baso % (Auto) 0.5 (0-2) % Absolute Neuts (auto) 15.5 H (1.5-7.7) 10^3/ul Absolute Lymphs (auto) 2.6 (1.0-4.8) 10^3/ul Absolute Monos (auto) 1.7 H (0-0.8) 10^3/ul Absolute Eos (auto) 0.4 (0-0.6) 10^3/ul Absolute Basos (auto) 0.1 (0-0.2) 10^3/ul Absolute Nucleated RBC 0 10^3/ul Nucleated RBC % 0 Assess/Plan/Problems-Billing Assessment: Ms. West is a 36 yo female with a PMH of CAD (ID with stent placement 2013) and type 2 DM who presented to the ED on 11/29 with concern for abdominal pain. - Patient Problems (1) Abdominal pain Code(s): R10.9 - UNSPECIFIED ABDOMINAL PAIN Comment: Leukocytosis resolved. Diffuse tenderness with palpation, improved today Inflammed small bowel loop noted on CT scan with concern for enteritis. Tolerating clear liquids. Patient reports multiple evaluations for N/V. Patient likely with nonerosive esophagitis secondary to reflux. Appreciate GI input - labs sent to evaluate hereditary angioedema, also concern for potential vasculitis. Continue levofloxacin and metronidazole. (2) Lactic acidosis Code(s): E87.2 - ACIDOSIS Comment: Resolved. Likely secondary to hypovolemia. (3) Diabetes mellitus Code(s): E11.9 - TYPE 2 DIABETES MELLITUS WITHOUT COMPLICATIONS Comment: Continue FSBG with Lispro SSI. Home metformin and Victoza on hold. (4) CAD (coronary artery disease) Code(s): I25.10 - ATHSCL HEART DISEASE OF [place] CORONARY ARTERY W/O ANG PCTRS Comment: s/p ID in 2013 with stent to LAD Continue ASA and metoprolol. (5) Hypothyroidism Code(s): E03.9 - HYPOTHYROIDISM, UNSPECIFIED Comment: Continue levothyroxine. (6) DVT prophylaxis Code(s): KUA8094 - Comment: Encourage early ambulation. SCDs Status and Disposition: OBV admit. D/c to home when medically stable.
[2016-11-30] MEDS ORDERED: Levofloxacin 500 MG IVPREMIX(* 500 MG/100 ML BAG IVPB SCH (15:00)
[2016-11-30] MEDS: Levofloxacin 500 MG IVPREMIX(* 500 MG/100 ML BAG IVPB ONE (15:51)
[2016-11-30] MEDS ORDERED: oxyCODONE TAB* 5 MG TAB PO PRN (16:17)
[2016-11-30] MEDS ORDERED: Morphine INJ* 4 MG/ML 1 ML SYRINGE IV PRN (16:19)
[2016-11-30] MEDS: oxyCODONE TAB* 5 MG TAB PO PRN (19:50)
[2016-11-30] MEDS: metroNIDAZOLE TAB* 250 MG PO SCH (21:02)
[2016-12-01] MEDS: Levothyroxine TAB* 50 MCG TAB PO SCH (05:54)
[2016-12-01] MEDS: Insulin LISPRO* 1 UNITS UNIT SUBCUT SCH (07:32)
[2016-12-01 07:37] VITALS: BP 118/80
[2016-12-01] MEDS: NS 0.9% 1000 ML* 1,000 ML IV SCH (07:41)
[2016-12-01] MEDS: Losartan TAB* 25 MG PO SCH (07:42)
[2016-12-01] MEDS: metroNIDAZOLE TAB* 250 MG PO SCH (07:42)
[2016-12-01] MEDS: Metoprolol Succinate XL TAB* 25 MG PO SCH (07:42)
[2016-12-01] MEDS: Aspirin EC Low Dose* 81 MG TAB.EC PO SCH (07:42)
[2016-12-01] MEDS: Atorvastatin* 10 MG TAB PO SCH (07:42)
[2016-12-01] MEDS: oxyCODONE TAB* 5 MG TAB PO PRN (07:43)
[2016-12-01] MEDS: Ondansetron INJ* 2 MG/ML VIAL IV PRN (08:15)
--- NOTE | 2016-12-01 08:21 | DCNOTE ---
Subjective Date of Service: 12/01/16 Interval History: Patient seen and examined at bedside. She reports feeling "better" than yesterday but still fatigues easily and endorses pain with excessive movement. Pain is better at rest. Denies CP, SOB, n/v. Tolerating PO intake. Had an episode of non-bloody diarrhea last night, but states "that's not abnormal for me." Abdominal pain managed on oxycodone. Wishes to leave today to go to grandmother's and has scheduled follow- up with primary GI next week. Family History: Unchanged from Admission Social History: Unchanged from Admission Past Medical History: Unchanged from Admission Objective Active Medications: Acetaminophen (Tylenol Tab*) 650 mg PO Q4H PRN PRN Reason: PAIN Last Admin: 11/30/16 13:59 Dose: 650 mg Aspirin (Aspirin Ec Low Dose*) 81 mg PO DAILY [facility] Last Admin: 12/01/16 07:42 Dose: 81 mg Atorvastatin Calcium (Lipitor*) 10 mg PO DAILY [facility] Last Admin: 12/01/16 07:42 Dose: 10 mg Dextrose (D50w Syringe 50 Ml*) 12.5 gm IV PUSH .FOR FS < 60 - SS PRN PRN Reason: FS < 60 Sodium Chloride (Ns 0.9% 1000 Ml*) 1,000 mls @ 125 mls/hr IV PER RATE [facility] Last Admin: 12/01/16 07:41 Dose: 125 mls/hr Insulin Human Lispro (Humalog*) 0 units SUBCUT ACHS [facility] PRN Reason: Protocol Last Admin: 12/01/16 07:32 Dose: Not Given Levofloxacin (Levaquin Tab*) 500 mg PO Q24H [facility] Levothyroxine Sodium (Synthroid Tab*) 50 mcg PO DAILY@0600 [facility] Last Admin: 12/01/16 05:54 Dose: 50 mcg Losartan Potassium (Cozaar Tab*) 25 mg PO DAILY [facility] Last Admin: 12/01/16 07:42 Dose: 25 mg Metoprolol Succinate (Toprol Xl Tab*) 25 mg PO DAILY [facility] Last Admin: 12/01/16 07:42 Dose: 25 mg Metronidazole (Flagyl Tab*) 500 mg PO BID [facility] Last Admin: 12/01/16 07:42 Dose: 500 mg Morphine Sulfate (Morphine Inj (Syringe)*) 4 mg IV Q4H PRN PRN Reason: PAIN - MILD Ondansetron HCl (Zofran Inj*) 4 mg IV Q6H PRN PRN Reason: NAUSEA Last Admin: 11/30/16 10:11 Dose: 4 mg Oxycodone HCl (Roxycodone Tab*) 5 mg PO Q4H PRN PRN Reason: PAIN - MILD TO MODERATE Oxycodone HCl (Roxycodone Tab*) 10 mg PO Q4H PRN PRN Reason: PAIN - MODERATE TO SEVERE Last Admin: 12/01/16 07:43 Dose: 10 mg Vital Signs 11/30/16 11/30/16 11/30/16 10:12 10:25 11:12 Temperature 98.0 F Pulse Rate 88 Respiratory 18 20 18 Rate Blood Pressure 102/56 (mmHg) O2 Sat by Pulse 96 Oximetry 11/30/16 11/30/16 11/30/16 12:12 15:26 19:42 Temperature 98.5 F 98.6 F Pulse Rate 71 67 Respiratory 18 18 18 Rate Blood Pressure 106/72 119/76 (mmHg) O2 Sat by Pulse 98 97 Oximetry 11/30/16 11/30/16 11/30/16 19:50 20:00 21:50 Temperature Pulse Rate Respiratory 17 18 17 Rate Blood Pressure (mmHg) O2 Sat by Pulse Oximetry 11/30/16 12/01/16 12/01/16 23:32 03:27 07:37 Temperature 98.6 F 98.8 F 97.9 F Pulse Rate 71 68 72 Respiratory 16 16 16 Rate Blood Pressure 110/63 105/59 118/80 (mmHg) O2 Sat by Pulse 97 97 96 Oximetry 12/01/16 12/01/16 07:43 07:58 Temperature Pulse Rate Respiratory 18 18 Rate Blood Pressure (mmHg) O2 Sat by Pulse Oximetry Oxygen Devices in Use Now: None Appearance: Female patient, lying in bed, NAD Eyes: PERRLA Ears/Nose/Mouth/Throat: Mucous Membranes Moist Neck: NL Appearance and Movements; NL JVP Respiratory: Symmetrical Chest Expansion and Respiratory Effort, Clear to Auscultation Cardiovascular: NL Sounds; No Murmurs; No JVD, RRR Abdominal: - - soft, mildly tender, BS present Neurological: Alert and Oriented x 3, NL Muscle Strength and Tone Lines/Tubes/Other Access: Clean, Dry and Intact Peripheral IV Result Diagrams: 11/30/16 06:54 11/30/16 06:54 Additional Lab and Data: Lab Results 11/29/16 Range/Units 00:55 WBC 20.3 H (3.5-10.8) 10^3/ul RBC 5.52 H (4.0-5.4) 10^6/ul Hgb 15.7 (12.0-16.0) g/dl Hct 47 (35-47) % MCV 85 (80-97) fL MCH 28 (27-31) pg MCHC 33 (31-36) g/dl RDW 13 (10.5-15) % Plt Count 464 H (150-450) 10^3/ul MPV 9 (7.4-10.4) um3 Neut % (Auto) 76.4 (38-83) % Lymph % (Auto) 12.9 L (25-47) % [place] % (Auto) 8.4 (1-9) % Eos % (Auto) 1.8 (0-6) % Baso % (Auto) 0.5 (0-2) % Absolute Neuts (auto) 15.5 H (1.5-7.7) 10^3/ul Absolute Lymphs (auto) 2.6 (1.0-4.8) 10^3/ul Absolute Monos (auto) 1.7 H (0-0.8) 10^3/ul Absolute Eos (auto) 0.4 (0-0.6) 10^3/ul Absolute Basos (auto) 0.1 (0-0.2) 10^3/ul Absolute Nucleated RBC 0 10^3/ul Nucleated RBC % 0 Assess/Plan/Problems-Billing Assessment: Ms. West is a 36 yo female with a PMH of CAD (MS with stent placement 2013) and type 2 DM who presented to the ED on 11/29 with concern for abdominal pain. - Patient Problems (1) Abdominal pain Code(s): R10.9 - UNSPECIFIED ABDOMINAL PAIN Comment: Leukocytosis resolved. Pain improving Inflammed small bowel loop noted on CT scan with concern for enteritis. Tolerating soft diet Patient reports multiple evaluations for N/V in the past. Patient likely with nonerosive esophagitis secondary to reflux. Appreciate GI input - labs sent to evaluate hereditary angioedema, also concern for potential vasculitis. Continue levofloxacin and metronidazole. F/u with [place] primary change coordinator next week. (2) Lactic acidosis Code(s): E87.2 - ACIDOSIS Comment: Resolved. Likely secondary to hypovolemia. (3) Diabetes mellitus Code(s): E11.9 - TYPE 2 DIABETES MELLITUS WITHOUT COMPLICATIONS Comment: Continue FSBG with Lispro SSI. Home metformin and Victoza on hold. (4) CAD (coronary artery disease) Code(s): I25.10 - ATHSCL HEART DISEASE OF [place] CORONARY ARTERY W/O ANG PCTRS Comment: s/p MS in 2013 with stent to LAD Continue ASA and metoprolol. (5) Hypothyroidism Code(s): E03.9 - HYPOTHYROIDISM, UNSPECIFIED Comment: Continue levothyroxine. (6) DVT prophylaxis Code(s): RKE2602 - Comment: Encourage early ambulation. SCDs Status and Disposition: OBV admit. D/c to home
[2016-12-01] MEDS ORDERED: Ondansetron ODT TAB* 4 MG SL ONE (09:00)
[2016-12-01] MEDS ORDERED: oxyCODONE/Acetamin 5/325 MG* TAB PO ONE (09:00)
[2016-12-01] MEDS ORDERED: Levofloxacin TAB* 500 MG PO ONE (10:00)
[2016-12-01] MEDS ORDERED: Levofloxacin TAB* 500 MG PO SCH (15:00)
--- NOTE | 2016-12-02 03:55 | DS ---
DISCHARGE SUMMARY: DATE OF ADMISSION: 11/29/16 DATE OF DISCHARGE: 12/01/16 PRIMARY CARE PHYSICIAN: Jeana Noguera MD, [place], [place]. PROVIDER: Ivis Gilbert NP. ATTENDING PHYSICIAN: Oksana Sullivan MD* (as dictated by Ivis Gilbert NP). CONSULTING PHYSICIAN: Doe Herndon MD. PRIMARY DISCHARGE DIAGNOSIS: Abdominal pain, suspect infectious enteritis. SECONDARY DISCHARGE DIAGNOSES: 1. Coronary artery disease, patient is status post myocardial infarction with stent placement. 2. Type 2 diabetes. 3. Hypothyroidism. 4. BMI of 50.2 indicating morbid obesity. MEDICATIONS AT DISCHARGE: 1. Levothyroxine 50 mcg daily. 2. Metformin 500 mg daily. 3. Metoprolol succinate 25 mg daily. 4. Atorvastatin 10 mg daily. 5. Victoza 1.2 mg subcu daily. 6. Aspirin 81 mg daily. 7. Percocet 1 tab q.6 hours p.r.n. This is a new medication. The patient is not a [facility] resident, so I-STOP was not available. 8. Ondansetron ODT 4 mg q.6 hours p.r.n. This is a new medication. 9. Metronidazole 500 mg b.i.d. This is a new medication. 10. Losartan 25 mg daily. This is a new medication. 11. Levofloxacin 500 mg daily. This is a new medication. HOSPITAL COURSE OF STAY: For full details, please refer to the H and P provided by Dr. Kovacs on 11/29/16. In summary, Ms. West is a 36-year-old female who is visiting the LTAC, [facility] for her grandmother's . The patient endorsed a previous history of intractable nausea and vomiting that has stretched back approximately 1 year. The patient has had multiple evaluations for this including a recent EGD and colonoscopy with her primary measurement coordinator, Dr. Lane. She reports that the EGD did show some concern for gastritis and the colonoscopy showed a polyp that was found and removed. The patient arrived to the ER with concern for diffuse abdominal pain with nausea and vomiting. Her CT scan showed concern for moderately to severely inflamed left abdominal small bowel loops. She was admitted and started on levofloxacin and metronidazole and managed for pain. Ms. West continued to have diffuse abdominal pain, although her nausea and vomiting did subside. She was able to tolerate clear liquid diet. She did initially present with 20,000 white count, which did resolve following the first day of antibiotics and fluids. Her abdominal pain and tenderness did improve with each day, although she did still endorse intermittent pain that is relieved with oxycodone. The patient also had a fairly significant lactic acidosis of 4.0 upon arrival, which did resolve. This is likely secondary to volume depletion. The patient was given IV fluids with good effect. We did appreciate a consult with Dr. Herndon of Gastroenterology. He did express some concern with the very focal edema in the bowel wall seen on the CT scan. He noted in his consultation that there was an area of fairly symmetric continuous swelling of the jejunum over several loops beginning a foot or two below the ligament of Treitz. There was no gas extension or intramural gas. Contrast in vasculature did show normal arterial and venous circulation. He did raise the question of vasculitis or circulatory problem, although there is no other evidence to make that diagnosis. There is also the question of possible hereditary angioedema with an atypical manifestation of infection. C4 complement, C1 esterase and C4A level were sent off and are still pending. On the day of discharge, the patient is tolerating a soft diet. Her pain is adequately managed with p.r.n. oxycodone and Zofran. She did request to leave so that she could attend her grandmother's . She is taking in adequate p.o. independently and feels that she can at least get fluids and small amounts of food. She has been afebrile since her admission. Her leukocytosis has resolved. Her kidney function is normal. CONCERNS AT DISCHARGE: Ms. West is discharged to home on 12/01/16. She will follow up with her measurement coordinator and is scheduled to see him next week. She is also to follow up with her PCP. The patient has verbalized understanding of this. We have switched the lisinopril to losartan given the concern for potential angioedema. A prescription was sent for losartan. She was made aware of this. Patient needs followup. The patient has been advised to sign a records release form so that the records could be sent to her PCP and her measurement coordinator. C4 complement, C1 esterase inhibitor, and C4A levels are also pending. DIET: Full liquid to soft diet. The patient is encouraged to drink plenty of fluids and to avoid caffeine and alcohol and other irritating foods and drinks. ACTIVITY: As tolerated. CONDITION: Improved, stable. DISPOSITION: To home. TIME SPENT: Time spent on this discharge was approximately 45 minutes. Again, this is only a brief summary of the patient's hospital course of stay. For full details, please refer to the full medical record. If you have any further questions or need further assistance, please feel free to contact me at . IVIS GILBERT NP CC: Jeana Noguera MD, [place], [place]; Angel Lane MD, [place], [place]* [id number]/[facility] #: [id number]
== END 2016-12-01 09:41 | disposition home or self-care (01) ==
LOC: ED 00:33 → MEDTELE 05:45
PROVIDERS: ADMIT Hospitalist; ATTEND Internal Medicine
DX: R10.9 Unspecified abdominal pain (principal); R11.2 Nausea with vomiting, unspecified; E87.2 Acidosis; I25.10 Atherosclerotic heart disease of native coronary artery without angina pectoris; Z95.5 Presence of coronary angioplasty implant and graft; I25.2 Old myocardial infarction; E11.9 Type 2 diabetes mellitus without complications; E03.9 Hypothyroidism, unspecified; E66.01 Morbid (severe) obesity due to excess calories; Z68.43 Body mass index [BMI] 50.0-59.9, adult; R00.0 Tachycardia, unspecified; R16.0 Hepatomegaly, not elsewhere classified; R18.8 Other ascites; I45.10 Unspecified right bundle-branch block; Z79.84 Long term (current) use of oral hypoglycemic drugs; Z79.82 Long term (current) use of aspirin; Z79.899 Other long term (current) drug therapy; Z87.891 Personal history of nicotine dependence; Z32.02 Encounter for pregnancy test, result negative
CPT/HCPCS: 36415; 74177; 80048; 80053; 81003; 81015; 83605; 83690; 83735; 83883; 84484; 84702; 85025; 85610; 86140; 86160; 93005; 96365; 96366; 96367; 96375; 96376; 99284; A9270-GY; G0378; J1956; J2270; J2405; Q9967